=== PATIENT | male | born 1980 | race Two or more races ===

== ENCOUNTER 2020-12-21 14:13 | Emergency (ER) | payer MEDICARE, MEDICAID ==
[~2020-12-21] VITALS: Ht 177.8 cm; Wt 77.1 kg
[2020-12-21 14:16] VITALS: BP 142/85
== END 2020-12-21 16:36 | disposition left against medical advice (07) ==
LOC: ER 14:13
DX: N50.89 Other specified disorders of the male genital organs (principal); Z53.21 Procedure and treatment not carried out due to patient leaving prior to being seen by health care provider